=== PATIENT | female | born 1985 | race Caucasian/White ===

== ENCOUNTER → 2019-10-22 | Emergency (ER) | payer MEDICAID ==
[~2019-10-22] VITALS: Ht 165.1 cm; Wt 77.1 kg
[~2019-10-22] MED LIST: ACETAMINOPHEN 325 MG TAB PO ONE; DOCU-94 PO; LEVO-28 PO; PANT40TA2 PO; PROM25TA5 PO; SODIUM CHLORIDE 0.9% 1,000 ML IVB ONE; SUCR1TAB22 OR; diphenhdrAMINE HCL 50 MG/1 ML VL IV ONE
[2019-10-22 17:35] LABS: Basophils # (auto) 0 10 ^3/uL (0-0.2); Basophils % (auto) 0.2 % (0.0-2.0); Eosinophils # (auto) 0 10 ^3/uL (0-0.8); Eosinophils % (auto) 0.1 % (0.0-7.0); Hematocrit 41.1 % (36.0-46.0); Hemoglobin 13.5 g/dL (12.2-16.2); Lymphocytes # (auto) 1.6 10 ^3/uL (0.4-5.4); Lymphocytes % (auto) 9.8 % (10.0-50.0); Mean Corpuscular Hemoglobin 29.3 pg (28.0-32.0); Mean Corpuscular Hgb Conc. 32.8 g/dL (32.0-36.0); Mean Corpuscular Volume 89.3 fL (80.0-100.0); Monocytes # (auto) 0.2 10 ^3/uL (0-1.3); Monocytes % (auto) 1.5 % (0.0-12.0); Neutrophils # (auto) 14.4 10 ^3/uL (1.6-8.6); Neutrophils % (auto) 88.4 % (37.0-80.0); Platelet Count (auto) 315 10^3/uL (140-450); Red Blood Cells 4.61 10^6/uL (4.0-5.20); Red Cell Distribution Width 13.9 % (11.8-14.3); White Blood Cell 16.3 10^3/uL (4.4-10.8)
[2019-10-22 17:50] LABS: Alanine Aminotransferase 32 U/L (13-56); Anion Gap 14 (5-15); Aspartate Aminotransferase 31 U/L (15-37); BUN/Creatinine Ratio 6.6; Blood Alcohol < 3.0 mg/dL (0-5); Blood Urea Nitrogen 9 mg/dL (7-18); Calcium 7.7 mg/dL (8.5-10.1); Carbon Dioxide 19 mmol/L (21-32); Chloride 105 mmol/L (98-107); GFR African American 57 mL/min; GFR Non-African American 47 mL/min; Glucose 388 mg/dL (74-106); Potassium 3.6 mmol/L (3.5-5.1); Sodium 138 mmol/L (136-145)
[2019-10-22 17:53] LABS: Alkaline Phosphatase 90 U/L (45-117); Bilirubin, Total 0.4 mg/dL (0.2-1.0); Total Protein 7.1 g/dL (6.4-8.2)
[2019-10-22 17:54] LABS: Lactic Acid w/Reflex 2.7 mmol/L (0.4-2.0)
[2019-10-22 18:00] VITALS: BP 98/54
[2019-10-22 18:05] LABS: Urine Amorphous Crystal FEW /hpf (None Seen); Urine Bacteria FEW /hpf (None Seen); Urine Blood 2+ /uL (Negative); Urine Mucus FEW (None Seen); Urine Specific Gravity 1.008 (1.001-1.035); Urine WBC 16 /hpf (0 - 5)
[2019-10-22 18:14] LABS: Amphetamine Screen, Urine NEGATIVE (NEGATIVE); Barbiturate Scree,Urine NEGATIVE (NEGATIVE); Benzodiazephine Screen, Urine NEGATIVE (NEGATIVE); Cannabinoid Screen, Urine NEGATIVE (NEGATIVE); Cocaine Screen, Urine NEGATIVE (NEGATIVE); Opiate Scree,Urine NEGATIVE (NEGATIVE); Phencyclidine Screen, Urine NEGATIVE (NEGATIVE)
== END | disposition left against medical advice (07) ==
LOC: EDUNIT# 16:01 → EDBD 16:05 → ER 16:08
DX: R41.82 Altered mental status, unspecified (principal); N39.0 Urinary tract infection, site not specified; R74.0 Nonspecific elevation of levels of transaminase and lactic acid dehydrogenase [LDH]; F17.210 Nicotine dependence, cigarettes, uncomplicated; Z32.02 Encounter for pregnancy test, result negative; Z88.0 Allergy status to penicillin; Z88.6 Allergy status to analgesic agent
CPT/HCPCS: 36415; 71045; 80053; 80307; 80320; 81001; 81025; 83605; 85025; 87040; 96361; 96374; 99284; J1200; J7030

== ENCOUNTER → 2019-10-31 | Emergency (ER) | payer MEDICAID ==
[~2019-10-31] VITALS: Ht 165.1 cm; Wt 77.1 kg
[~2019-10-31] MED LIST changes: -ACETAMINOPHEN 325 MG TAB PO ONE; -DOCU-94 PO; -LEVO-28 PO; -PANT40TA2 PO; -PROM25TA5 PO; -SUCR1TAB22 OR; -diphenhdrAMINE HCL 50 MG/1 ML VL IV ONE
[2019-10-31 16:31] LABS: Basophils # (auto) 0 10 ^3/uL (0-0.2); Basophils % (auto) 0.4 % (0.0-2.0); Eosinophils # (auto) 0.1 10 ^3/uL (0-0.8); Eosinophils % (auto) 0.5 % (0.0-7.0); Hematocrit 36.5 % (36.0-46.0); Hemoglobin 12.2 g/dL (12.2-16.2); Lymphocytes # (auto) 0.9 10 ^3/uL (0.4-5.4); Lymphocytes % (auto) 7.3 % (10.0-50.0); Mean Corpuscular Hemoglobin 29.3 pg (28.0-32.0); Mean Corpuscular Hgb Conc. 33.4 g/dL (32.0-36.0); Mean Corpuscular Volume 87.6 fL (80.0-100.0); Monocytes # (auto) 0.6 10 ^3/uL (0-1.3); Monocytes % (auto) 4.8 % (0.0-12.0); Neutrophils # (auto) 10.8 10 ^3/uL (1.6-8.6); Platelet Count (auto) 273 10^3/uL (140-450); Red Blood Cells 4.17 10^6/uL (4.0-5.20); Red Cell Distribution Width 13.9 % (11.8-14.3); White Blood Cell 12.4 10^3/uL (4.4-10.8)
[2019-10-31 16:54] LABS: Albumin 3.3 g/dL (3.4-5.0); Calcium 8.2 mg/dL (8.5-10.1); Potassium 3.9 mmol/L (3.5-5.1)
[2019-10-31 16:58] LABS: BUN/Creatinine Ratio 13.4; Bilirubin, Total 0.3 mg/dL (0.2-1.0); Total Protein 6.8 g/dL (6.4-8.2)
[2019-10-31 18:00] VITALS: BP 117/89
[2019-10-31 18:48] LABS: Urine Bacteria FEW /hpf (None Seen); Urine Blood Negative /uL (Negative); Urine Hyaline Cast FEW /lpf (0 - 2); Urine Mucus FEW (None Seen); Urine Specific Gravity 1.014 (1.001-1.035); Urine WBC 9 /hpf (0 - 5)
[2019-10-31 19:08] LABS: Amphetamine Screen, Urine NEGATIVE (NEGATIVE); Barbiturate Scree,Urine NEGATIVE (NEGATIVE); Benzodiazephine Screen, Urine NEGATIVE (NEGATIVE); Cannabinoid Screen, Urine NEGATIVE (NEGATIVE); Cocaine Screen, Urine NEGATIVE (NEGATIVE); Opiate Scree,Urine NEGATIVE (NEGATIVE); Phencyclidine Screen, Urine NEGATIVE (NEGATIVE)
== END | disposition home or self-care (01) ==
LOC: ER 15:36 → EDBD 15:36 → EDUNIT# 15:36
DX: T50.901A Poisoning by unspecified drugs, medicaments and biological substances, accidental (unintentional), initial encounter (principal); L03.113 Cellulitis of right upper limb; F17.210 Nicotine dependence, cigarettes, uncomplicated; Z88.5 Allergy status to narcotic agent; Z88.0 Allergy status to penicillin; Y92.89 Other specified places as the place of occurrence of the external cause
CPT/HCPCS: 36415; 80053; 80307; 81001; 85025; 99283; J7030

== ENCOUNTER 2020-01-10 19:41 | Emergency (ER) | payer MEDICAID ==
[~2020-01-10] VITALS: Ht 165.1 cm; Wt 81.6 kg
[2020-01-10 20:52] VITALS: BP 156/90
== END 2020-01-10 21:20 | disposition left against medical advice (07) ==
LOC: ER 19:41
DX: R10.84 Generalized abdominal pain (principal); R11.2 Nausea with vomiting, unspecified; Z53.21 Procedure and treatment not carried out due to patient leaving prior to being seen by health care provider

== ENCOUNTER 2020-01-11 04:47 | Inpatient (IN) | payer MEDICAID ==
[~2020-01-11] VITALS: Ht 165.1 cm; Wt 87.0 kg
[2020-01-11 06:49] LABS: Basophils # (auto) 0.1 10 ^3/uL (0-0.2); Basophils % (auto) 0.3 % (0.0-2.0); Eosinophils # (auto) 0 10 ^3/uL (0-0.8); Eosinophils % (auto) 0.2 % (0.0-7.0); Hematocrit 40.9 % (36.0-46.0); Hemoglobin 13.5 g/dL (12.2-16.2); Lymphocytes # (auto) 0.8 10 ^3/uL (0.4-5.4); Lymphocytes % (auto) 4.4 % (10.0-50.0); Mean Corpuscular Hemoglobin 28.1 pg (28.0-32.0); Mean Corpuscular Hgb Conc. 33.1 g/dL (32.0-36.0); Monocytes # (auto) 0.7 10 ^3/uL (0-1.3); Monocytes % (auto) 4.1 % (0.0-12.0); Neutrophils # (auto) 16.3 10 ^3/uL (1.6-8.6); Platelet Count (auto) 281 10^3/uL (140-450); Red Blood Cells 4.81 10^6/uL (4.0-5.20); Red Cell Distribution Width 13.5 % (11.8-14.3); White Blood Cell 17.9 10^3/uL (4.4-10.8)
[2020-01-11] MEDS ORDERED: PANTOPRAZOLE 40 MG/10 ML VIAL INJ IV ONE (07:00)
[2020-01-11 07:09] LABS: Albumin 3.6 g/dL (3.4-5.0); Calcium 8.9 mg/dL (8.5-10.1); Magnesium 2.2 mg/dL (1.6-2.6); Potassium 3.9 mmol/L (3.5-5.1)
[2020-01-11 07:12] LABS: Bilirubin, Total 0.6 mg/dL (0.2-1.0); Total Protein 7.5 g/dL (6.4-8.2)
[2020-01-11 07:13] LABS: INR 0.96 (0.9-1.15); Partial Thromboplastin Time 25.8 sec (23.64-32.05)
[2020-01-11] MEDS: SODIUM CHLORIDE 0.9% 1,000 ML IV SCH ×2 (07:31→18:35)
[2020-01-11] MEDS ORDERED: DOCUSATE SOD 100 MG CAP PO PRN (07:45)
[2020-01-11] MEDS ORDERED: METOCLOPRAMIDE HCL 5MG/ml INJ 2ml VIAL IV PRN (07:45)
[2020-01-11] MEDS ORDERED: LORazepam 0.5 MG TAB PO PRN (07:45)
[2020-01-11 07:51] LABS: Urine Bacteria MANY /hpf (None Seen); Urine Blood TRACE /uL (Negative); Urine Mucus FEW (None Seen); Urine Specific Gravity 1.015 (1.001-1.035); Urine WBC 137 /hpf (0 - 5)
[2020-01-11] MEDS ORDERED: ONDANSETRON HCL 4 MG/2 ML VIAL IV ONE (08:00)
[2020-01-11] MEDS ORDERED: MORPHINE SULFATE 4 MG/ML SYR/VIAL IV ONE (08:00)
[2020-01-11] MEDS ORDERED: cefTRIAXone 1GM/50ML D5W 50 ML IV ONE (08:45)
[2020-01-11] MEDS ORDERED: metroNIDAZOLE 500MG/100ML 100 ML IV ONE (08:45)
[2020-01-11] MEDS: ACETAMINOPHEN 325 MG TAB PO PRN ×2 (08:48→16:15)
[2020-01-11] MEDS ORDERED: PANTOPRAZOLE 40 MG/10 ML VIAL INJ IV SCH (10:00)
[2020-01-11] MEDS ORDERED: NALOXONE HCL 0.4 MG/ML VIAL ONE (13:07)
[2020-01-11] MEDS ORDERED: FLUMAZENIL 0.1 MG/ML INJ 10ML MDV IV ONE (13:07)
[2020-01-11] MEDS ORDERED: SODIUM CHLORIDE LOCK 10 ML ONE (13:07)
[2020-01-11] MEDS ORDERED: LIDOCAINE VISCOUS 2% 15ML UD ONE (13:07)
[2020-01-11] MEDS ORDERED: diphenhdrAMINE HCL 50 MG/1 ML VL ONE (13:08)
[2020-01-11] MEDS ORDERED: MORPHINE SULF INJ 2 MG/ML SYRINGE 1ML IV PRN (13:15)
[2020-01-11] MEDS: ONDANSETRON HCL 4 MG/2 ML VIAL IV PRN ×2 (13:16→21:13)
[2020-01-11] MEDS: MIDAZOLAM HCL 5 MG/ML-1ML VIAL ONE ×2 (14:05→14:09)
[2020-01-11] MEDS: fentaNYL CITRATE 100 MCG/2 ML VL ONE ×2 (14:05→14:09)
[2020-01-11] MEDS: HYDROmorphone HCL 2 MG/ML VL IV PRN ×3 (14:16→21:13)
[2020-01-11] MEDS: SUCRALFATE 1 GM/10 ML ORAL SUSP PO SCH ×2 (16:15→21:13)
[2020-01-11 17:32] VITALS: BP 146/76
[2020-01-11] MEDS: PANTOPRAZOLE 40 MG/10 ML VIAL INJ IV SCH (21:13)
[2020-01-11] MEDS: metroNIDAZOLE 500MG/100ML 100 ML IV SCH (21:14)
[2020-01-11 22:00] VITALS: BP 119/59
[2020-01-12] MEDS: HYDROmorphone HCL 2 MG/ML VL IV PRN ×7 (00:35→20:42)
[2020-01-12] MEDS: ONDANSETRON HCL 4 MG/2 ML VIAL IV PRN (03:38)
[2020-01-12] MEDS: SODIUM CHLORIDE 0.9% 1,000 ML IV SCH ×2 (05:07→12:57)
[2020-01-12 05:30] VITALS: BP 131/67
[2020-01-12] MEDS: SUCRALFATE 1 GM/10 ML ORAL SUSP PO SCH ×4 (05:58→21:23)
[2020-01-12] MEDS: metroNIDAZOLE 500MG/100ML 100 ML IV SCH ×3 (05:58→21:22)
[2020-01-12 06:00] LABS: Basophils # (auto) 0 10 ^3/uL (0-0.2); Basophils % (auto) 0.3 % (0.0-2.0); Eosinophils # (auto) 0 10 ^3/uL (0-0.8); Eosinophils % (auto) 0.3 % (0.0-7.0); Hematocrit 33.4 % (36.0-46.0); Hemoglobin 11.3 g/dL (12.2-16.2); Lymphocytes # (auto) 1.2 10 ^3/uL (0.4-5.4); Lymphocytes % (auto) 12.6 % (10.0-50.0); Mean Corpuscular Hemoglobin 28.8 pg (28.0-32.0); Mean Corpuscular Hgb Conc. 33.9 g/dL (32.0-36.0); Mean Corpuscular Volume 85.1 fL (80.0-100.0); Monocytes # (auto) 0.8 10 ^3/uL (0-1.3); Monocytes % (auto) 8.4 % (0.0-12.0); Neutrophils # (auto) 7.4 10 ^3/uL (1.6-8.6); Neutrophils % (auto) 78.4 % (37.0-80.0); Platelet Count (auto) 197 10^3/uL (140-450); Red Blood Cells 3.93 10^6/uL (4.0-5.20); Red Cell Distribution Width 13.2 % (11.8-14.3); White Blood Cell 9.5 10^3/uL (4.4-10.8)
[2020-01-12 06:21] LABS: BUN/Creatinine Ratio 9.3; Calcium 7.8 mg/dL (8.5-10.1); Potassium 3.3 mmol/L (3.5-5.1)
[2020-01-12 08:00] VITALS: BP 114/67
[2020-01-12 09:00] VITALS: BP 109/67
[2020-01-12] MEDS: cefTRIAXone 1GM/50ML D5W 50 ML IV SCH (10:04)
[2020-01-12] MEDS: PANTOPRAZOLE 40 MG/10 ML VIAL INJ IV SCH ×2 (10:04→21:23)
[2020-01-12] MEDS ORDERED: POTASSIUM EFFERVESENT TAB 25 MEQ PO ONE (10:15)
[2020-01-12 13:00] VITALS: BP 121/63
[2020-01-12 17:00] VITALS: BP 135/77
[2020-01-12 22:00] VITALS: BP 134/72
[2020-01-13] MEDS: HYDROmorphone HCL 2 MG/ML VL IV PRN ×6 (00:10→19:49)
[2020-01-13] MEDS: SODIUM CHLORIDE 0.9% 1,000 ML IV SCH ×3 (02:54→17:46)
[2020-01-13 05:50] VITALS: BP 132/70
[2020-01-13] MEDS: SUCRALFATE 1 GM/10 ML ORAL SUSP PO SCH ×4 (06:00→22:28)
[2020-01-13] MEDS: metroNIDAZOLE 500MG/100ML 100 ML IV SCH ×3 (06:00→22:27)
[2020-01-13 06:05] LABS: Basophils # (auto) 0 10 ^3/uL (0-0.2); Basophils % (auto) 0.7 % (0.0-2.0); Eosinophils # (auto) 0 10 ^3/uL (0-0.8); Eosinophils % (auto) 0.5 % (0.0-7.0); Hematocrit 34.3 % (36.0-46.0); Hemoglobin 11.6 g/dL (12.2-16.2); Lymphocytes % (auto) 19.7 % (10.0-50.0); Mean Corpuscular Hemoglobin 28.6 pg (28.0-32.0); Mean Corpuscular Hgb Conc. 33.7 g/dL (32.0-36.0); Monocytes # (auto) 0.5 10 ^3/uL (0-1.3); Monocytes % (auto) 9.8 % (0.0-12.0); Neutrophils # (auto) 3.5 10 ^3/uL (1.6-8.6); Neutrophils % (auto) 69.3 % (37.0-80.0); Platelet Count (auto) 184 10^3/uL (140-450); Red Blood Cells 4.04 10^6/uL (4.0-5.20); Red Cell Distribution Width 13.2 % (11.8-14.3)
[2020-01-13 07:09] LABS: BUN/Creatinine Ratio 8.3; Calcium 7.9 mg/dL (8.5-10.1); Magnesium 2.2 mg/dL (1.6-2.6)
[2020-01-13] MEDS: cefTRIAXone 1GM/50ML D5W 50 ML IV SCH (08:54)
[2020-01-13] MEDS: PANTOPRAZOLE 40 MG/10 ML VIAL INJ IV SCH ×2 (08:55→22:28)
[2020-01-13 09:00] VITALS: BP 135/82
[2020-01-13] MEDS ORDERED: POTASSIUM EFFERVESENT TAB 25 MEQ PO ONE (12:00)
[2020-01-13 13:00] VITALS: BP 130/74
[2020-01-13 17:00] VITALS: BP 124/82
[2020-01-13 17:58] LABS: Calcium 7.7 mg/dL (8.5-10.1); Potassium 3.6 mmol/L (3.5-5.1)
[2020-01-13 22:00] VITALS: BP 124/73
[2020-01-14] MEDS: HYDROmorphone HCL 2 MG/ML VL IV PRN ×4 (02:58→13:20)
[2020-01-14 05:00] VITALS: BP 125/67
[2020-01-14] MEDS: SODIUM CHLORIDE 0.9% 1,000 ML IV SCH ×3 (05:26→15:31)
[2020-01-14 05:51] LABS: Basophils # (auto) 0 10 ^3/uL (0-0.2); Basophils % (auto) 0.9 % (0.0-2.0); Eosinophils # (auto) 0.1 10 ^3/uL (0-0.8); Eosinophils % (auto) 2.4 % (0.0-7.0); Hemoglobin 10.8 g/dL (12.2-16.2); Lymphocytes # (auto) 1.6 10 ^3/uL (0.4-5.4); Mean Corpuscular Hemoglobin 28.5 pg (28.0-32.0); Mean Corpuscular Hgb Conc. 33.7 g/dL (32.0-36.0); Mean Corpuscular Volume 84.7 fL (80.0-100.0); Monocytes # (auto) 0.6 10 ^3/uL (0-1.3); Monocytes % (auto) 13.5 % (0.0-12.0); Neutrophils # (auto) 2.4 10 ^3/uL (1.6-8.6); Neutrophils % (auto) 49.2 % (37.0-80.0); Nucleated Red Blood Cells % 0.1 %; Platelet Count (auto) 181 10^3/uL (140-450); Red Blood Cells 3.78 10^6/uL (4.0-5.20); Red Cell Distribution Width 13.3 % (11.8-14.3); White Blood Cell 4.8 10^3/uL (4.4-10.8)
[2020-01-14 06:09] LABS: Potassium 3.5 mmol/L (3.5-5.1)
[2020-01-14 06:11] LABS: BUN/Creatinine Ratio 7.7; Calcium 7.7 mg/dL (8.5-10.1)
[2020-01-14] MEDS: metroNIDAZOLE 500MG/100ML 100 ML IV SCH ×2 (06:30→14:10)
[2020-01-14] MEDS: SUCRALFATE 1 GM/10 ML ORAL SUSP PO SCH ×3 (06:30→17:13)
[2020-01-14] MEDS: cefTRIAXone 1GM/50ML D5W 50 ML IV SCH (08:11)
[2020-01-14 09:00] VITALS: BP 132/85
[2020-01-14] MEDS: PANTOPRAZOLE 40 MG/10 ML VIAL INJ IV SCH (09:59)
[2020-01-14] MEDS ORDERED: PROM25TA5 PO (13:54)
[2020-01-14] MEDS ORDERED: PANT40TA2 PO (13:54)
[2020-01-14] MEDS ORDERED: LEVO-28 PO (13:54)
[2020-01-14] MEDS ORDERED: SUCR1TAB38 OR (13:54)
[2020-01-14 14:00] VITALS: BP 140/94
[2020-01-14 14:25] VITALS: BP 132/85
[2020-01-14] MEDS ORDERED: DOCU-94 PO (16:28)
[2020-01-14 17:00] VITALS: BP 132/78
== END 2020-01-14 17:32 | disposition home or self-care (01) | DRG 241 ==
LOC: ER 04:47 → EDBD 04:47 → OVERFLOW 04:48 → WEST WING 15:39
PROVIDERS: ADMIT Hospitalist; ATTEND Internal Medicine
PROC: 0DB68ZX Excision of Stomach, Via Natural or Artificial Opening Endoscopic, Diagnostic (ICD-10-PCS; principal; 2020-01-11 13:00)
DX: K25.9 Gastric ulcer, unspecified as acute or chronic, without hemorrhage or perforation (principal); E86.0 Dehydration; N39.0 Urinary tract infection, site not specified; B96.20 Unspecified Escherichia coli [E. coli] as the cause of diseases classified elsewhere; E87.6 Hypokalemia; F17.210 Nicotine dependence, cigarettes, uncomplicated; Z88.0 Allergy status to penicillin; Z88.5 Allergy status to narcotic agent
CPT/HCPCS: 36415; 43239; 74176; 80048; 80053; 81001; 82150; 83690; 83735; 84443; 84702; 85025; 85610; 85730; 86677; 87086; 87088; 87186; 96365; 96367; 96375; C9113; G0378; J0696; J2250; J2405; J3490

== ENCOUNTER 2022-07-18 04:47 | Emergency (ER) | payer MEDICAID ==
[~2022-07-18] VITALS: Ht 162.6 cm; Wt 77.1 kg
[~2022-07-18 04:47] MED LIST changes: +DOCU-94 PO; +LEVO-28 PO; +PANT40TA2 PO; +PROM25TA5 PO; -SODIUM CHLORIDE 0.9% 1,000 ML IVB ONE; +SUCR1TAB22 OR
[2022-07-18 05:09] VITALS: BP 127/70
[2022-07-18 07:44] LABS: Albumin 3.8 g/dL (3.4-5.0); BUN/Creatinine Ratio 12.5; Magnesium 2.6 mg/dL (1.6-2.6); Potassium 3.7 mmol/L (3.5-5.1)
[2022-07-18 07:47] LABS: Total Protein 7.1 g/dL (6.4-8.2)
[2022-07-18 07:50] LABS: Basophils # (auto) 0 10 ^3/uL (0-0.2); Basophils % (auto) 0.4 % (0.0-2.0); Eosinophils # (auto) 0 10 ^3/uL (0-0.8); Eosinophils % (auto) 0.3 % (0.0-7.0); Hematocrit 40.2 % (36.0-46.0); Hemoglobin 13.7 g/dL (12.2-16.2); Lymphocytes # (auto) 1.7 10 ^3/uL (0.4-5.4); Lymphocytes % (auto) 14.6 % (10.0-50.0); Mean Corpuscular Hemoglobin 27.8 pg (28.0-32.0); Mean Corpuscular Hgb Conc. 34.1 g/dL (32.0-36.0); Mean Corpuscular Volume 81.4 fL (80.0-100.0); Monocytes # (auto) 0.4 10 ^3/uL (0-1.3); Monocytes % (auto) 3.7 % (0.0-12.0); Neutrophils # (auto) 9.2 10 ^3/uL (1.6-8.6); Red Blood Cells 4.94 10^6/uL (4.0-5.20); Red Cell Distribution Width 13.8 % (11.8-14.3); White Blood Cell 11.4 10^3/uL (4.4-10.8)
[2022-07-18] MEDS ORDERED: SODIUM CHLORIDE 0.9% 500 ML IVB ONE (08:45)
[2022-07-18] MEDS ORDERED: LIDOCAINE VISCOUS 2% 15ML UD PO ONE (08:45)
[2022-07-18] MEDS ORDERED: PANTOPRAZOLE 40 MG TAB PO ONE (08:45)
[2022-07-18] MEDS ORDERED: ALUM & MAG HYDROX-SIMETH LIQ(MAALOX) 30 ML PO ONE (08:45)
[2022-07-18] MEDS ORDERED: PROCHLORPERAZINE EDISYLATE 5 MG/ML 2ML VIAL IV ONE (08:45)
[2022-07-18] MEDS ORDERED: SODIUM CHLORIDE 0.9% 1,000 ML IV ONE (08:45)
[2022-07-18] MEDS ORDERED: DONNATAL 5ml ORAL Elix (BELLADONNA ALK-PHENOBARB) PO ONE (08:45)
[2022-07-18] MEDS ORDERED: IOHEXOL 300 MG/ML 100ML BOTTLE IJ ONE (10:50)
[2022-07-18] MEDS ORDERED: PROC10TA2 PO (16:01)
[2022-07-18] MEDS ORDERED: PANT40TA2 PO (16:01)
== END 2022-07-18 16:18 | disposition left against medical advice (07) ==
LOC: EDBD 04:47 → ER 04:47
DX: K44.9 Diaphragmatic hernia without obstruction or gangrene (principal); K42.9 Umbilical hernia without obstruction or gangrene; F12.188 Cannabis abuse with other cannabis-induced disorder; F17.210 Nicotine dependence, cigarettes, uncomplicated; F12.10 Cannabis abuse, uncomplicated; Z32.02 Encounter for pregnancy test, result negative; Z88.0 Allergy status to penicillin; Z88.6 Allergy status to analgesic agent
CPT/HCPCS: 36415; 71046; 74177; 80053; 82150; 83690; 83735; 84702; 85025; 93005; 96374; 99285; J0780; Q9967

== ENCOUNTER 2022-09-22 13:07 | Emergency (ER) | payer MEDICAID ==
[~2022-09-22] VITALS: Ht 165.1 cm; Wt 90.9 kg
[~2022-09-22 13:07] MED LIST changes: +PROC10TA2 PO
[2022-09-22] MEDS ORDERED: LEVO-28 PO (13:29)
[2022-09-22] MEDS ORDERED: SODIUM CHLORIDE 0.9% 1,000 ML IV ONE (13:30)
[2022-09-22] MEDS ORDERED: levoFLOXacin 500MG 100 ML IV ONE (13:30)
[2022-09-22 14:12] LABS: Basophils # (auto) 0 10 ^3/uL (0-0.2); Basophils % (auto) 0.4 % (0.0-2.0); Eosinophils # (auto) 0.1 10 ^3/uL (0-0.8); Eosinophils % (auto) 1.4 % (0.0-7.0); Hematocrit 38.8 % (36.0-46.0); Hemoglobin 13.3 g/dL (12.2-16.2); Lymphocytes # (auto) 2.1 10 ^3/uL (0.4-5.4); Lymphocytes % (auto) 39.9 % (10.0-50.0); Mean Corpuscular Hemoglobin 27.9 pg (28.0-32.0); Mean Corpuscular Hgb Conc. 34.2 g/dL (32.0-36.0); Mean Corpuscular Volume 81.6 fL (80.0-100.0); Monocytes # (auto) 0.3 10 ^3/uL (0-1.3); Monocytes % (auto) 5.6 % (0.0-12.0); Neutrophils # (auto) 2.7 10 ^3/uL (1.6-8.6); Neutrophils % (auto) 52.7 % (37.0-80.0); Nucleated Red Blood Cells % 0.2 %; Red Blood Cells 4.76 10^6/uL (4.0-5.20); Red Cell Distribution Width 13.8 % (11.8-14.3); White Blood Cell 5.2 10^3/uL (4.4-10.8)
[2022-09-22 14:37] LABS: Albumin 3.5 g/dL (3.4-5.0); BUN/Creatinine Ratio 12.5; Bilirubin, Total 0.4 mg/dL (0.2-1.0); Potassium 3.4 mmol/L (3.5-5.1); Total Protein 6.3 g/dL (6.4-8.2)
[2022-09-22] MEDS ORDERED: POTASSIUM EFFERVESENT TAB 25 MEQ PO ONE (15:00)
== END 2022-09-22 20:37 | disposition left against medical advice (07) ==
LOC: EDBD 13:07 → ER 13:07
DX: J06.9 Acute upper respiratory infection, unspecified (principal); K02.9 Dental caries, unspecified; F17.210 Nicotine dependence, cigarettes, uncomplicated; Z79.2 Long term (current) use of antibiotics; Z79.899 Other long term (current) drug therapy; Z88.0 Allergy status to penicillin; Z88.5 Allergy status to narcotic agent; Z88.8 Allergy status to other drugs, medicaments and biological substances
CPT/HCPCS: 36415; 71045; 80053; 84484; 85025; 85379; 93005; 96365; 99285; J1956; J7030

== ENCOUNTER 2022-11-20 11:06 | Emergency (ER) | payer MEDICAID ==
[~2022-11-20] VITALS: Ht 170.2 cm; Wt 77.2 kg
[2022-11-20] MEDS ORDERED: SODIUM CHLORIDE 0.9% 1,000 ML IVB ONE (11:15)
[2022-11-20 12:06] LABS: Basophils # (auto) 0 10 ^3/uL (0-0.2); Basophils % (auto) 0.2 % (0.0-2.0); Eosinophils # (auto) 0 10 ^3/uL (0-0.8); Eosinophils % (auto) 0.1 % (0.0-7.0); Hematocrit 40.7 % (36.0-46.0); Hemoglobin 13.5 g/dL (12.2-16.2); Lymphocytes # (auto) 0.5 10 ^3/uL (0.4-5.4); Lymphocytes % (auto) 2.4 % (10.0-50.0); Mean Corpuscular Hemoglobin 27.9 pg (28.0-32.0); Mean Corpuscular Hgb Conc. 33.3 g/dL (32.0-36.0); Mean Corpuscular Volume 83.7 fL (80.0-100.0); Monocytes # (auto) 0.4 10 ^3/uL (0-1.3); Monocytes % (auto) 2.1 % (0.0-12.0); Neutrophils # (auto) 17.7 10 ^3/uL (1.6-8.6); Neutrophils % (auto) 95.2 % (37.0-80.0); Red Blood Cells 4.86 10^6/uL (4.0-5.20); Red Cell Distribution Width 13.7 % (11.8-14.3); White Blood Cell 18.6 10^3/uL (4.4-10.8)
[2022-11-20 12:08] LABS: Albumin 3.3 g/dL (3.4-5.0); Anion Gap 9 (5-15); Blood Urea Nitrogen 11 mg/dL (7-18); Calcium 8.4 mg/dL (8.5-10.1); Carbon Dioxide 20 mmol/L (21-32); Chloride 106 mmol/L (98-107); Glucose 150 mg/dL (74-106); Potassium 3.8 mmol/L (3.5-5.1); Sodium 135 mmol/L (136-145)
[2022-11-20 12:14] LABS: Alanine Aminotransferase 60 U/L (13-56); Alkaline Phosphatase 101 U/L (45-117); Aspartate Aminotransferase 91 U/L (15-37); BUN/Creatinine Ratio 9.3 (10.0-20.0); Bilirubin, Total 0.8 mg/dL (0.2-1.0); Blood Alcohol < 3.0 mg/dL (0-5); GFR African American 67 mL/min; GFR Non-African American 55 mL/min; Total Protein 7.2 g/dL (6.4-8.2)
[2022-11-20 14:02] VITALS: BP 109/69
== END 2022-11-20 14:04 | disposition home or self-care (01) ==
LOC: EDBD 11:06 → ER 11:06
DX: T40.411A Poisoning by fentanyl or fentanyl analogs, accidental (unintentional), initial encounter (principal); F17.210 Nicotine dependence, cigarettes, uncomplicated; F12.10 Cannabis abuse, uncomplicated; F19.10 Other psychoactive substance abuse, uncomplicated; Z88.8 Allergy status to other drugs, medicaments and biological substances; Z88.0 Allergy status to penicillin; Z88.5 Allergy status to narcotic agent; Y92.89 Other specified places as the place of occurrence of the external cause
CPT/HCPCS: 36415; 70450; 80053; 80320; 82962; 85025; 93005; 96360; 99284; J7030; J7040

== ENCOUNTER 2024-10-21 17:50 | Emergency (ER) | payer MEDICAID ==
[~2024-10-21] VITALS: Ht 167.6 cm; Wt 70.0 kg
[2024-10-21 17:50] VITALS: PULSE 0
[~2024-10-21 17:50] MED LIST changes: -LEVO-28 PO; +LEVO500T91 PO; -PROC10TA2 PO; +PROC10TA6 PO; +PROM25TA10 PO; -PROM25TA5 PO; -SUCR1TAB22 OR; +SUCR1TAB31 OR
[2024-10-21 17:52] VITALS: BP 0/0; PULSE 0; RESP 0; TEMP 97.5; O2SAT 0
--- NOTE | 2024-10-21 18:05 | ED.PDOC ---
CPR-HPI HPI Comments 38Y F presents to ED via EMS with chief complaint CPR. EMS received call from family at 17:14 and arrived on scene at approximately 17:22. Pt was given Narcan 8mg by mother and 6 epis by EMS. Pt was in Vfib and was defibrillated. Pt was also given 500mL of fluids. EMS arrived to ED at 1750 with CPR in progress. Pt has h/o overdose one year ago. Chief Complaint: CPR Time Seen by MD: 17:50 Primary Care Provider: TANNER Reviewed Notes: Nurses Notes, Tattoo Technician Notes, Medications, Allergies Allergies: Coded Allergies: Atorvastatin (Verified Allergy, Severe, 11/20/22) Codeine (Unverified Allergy, Unknown, 11/20/22) Ibuprofen (Verified Allergy, Unknown, 11/20/22) Penicillins (Unverified Allergy, Unknown, 11/20/22) Home Meds Active Scripts Levofloxacin Hemihydrate (LEVOFLOXACIN) 500 Mg Tab, 500 MG PO DAILY for 10 Days, #10 MG Prov:AVE MCPHERSON MD 09/22/22 Pantoprazole Sodium Sesquihydr (Protonix) 40 Mg Tab, 40 MG PO DAILY for 10 Days, #10 TAB Prov:MARCIN STOCK MD 07/18/22 Prochlorperazine Maleate (Compazine) 10 Mg Tb, 1 TAB PO Q6HR for 5 Days, #20 TAB 3 Refills Prov:MARCIN STOCK MD 07/18/22 Docusate Sodium (Colace) 100 Mg Cap, 1 CAP PO BID, #60 CAP 0 Refills Prov:BENEDICTO SMITH MD 01/14/20 Levofloxacin Hemihydrate (LEVOFLOXACIN) 500 Mg Tab, 1 TAB PO DAILY, #2 TAB Prov:BENEDICTO SMITH MD 01/14/20 Promethazine Hcl (Promethazine Hcl) 25 Mg Tab, 1 TAB PO Q6HPRN PRN, #20 TAB 0 Refills Prov:BENEDICTO SMITH MD 01/14/20 Pantoprazole Sodium Sesquihydr (Protonix) 40 Mg Tab, 40 MG PO BID, #60 TAB Prov:BENEDICTO SMITH MD 01/14/20 Sucralfate (CARAFATE) 1 Gm Tab, 1 GM OR QIDACHS for 30 Days, #120 TAB Prov:BENEDICTO SMITH MD 01/14/20 Information Source: Emergency Med Personnel Mode of Arrival: EMS Brought in by: EMS Timing: Minutes Duration: Down time prior EMS: (7mins), Total time prior hopital: (35mins) Onset: Unknown Available Hx: Drug Overdose Inital rhythm: V-fib Treatment: CPR, Defibrillation, Epinephrine, Other Associated signs and symptoms: Unknown Past Medical History PAST MEDICAL HISTORY: Cancer, Seizures Surgical History: Denies all surgeries ORDER PACKER OR PACKAGER History: No Pertinent ORDER PACKER OR PACKAGER History Family History Family History: No family hx of Cancer, No family hx of DM, No family hx of Heart danial Social History Smoker: Cigarettes Alcohol: Rarely Drugs: Marijuana, Other Lives In: Home Unable to Obtain due to: Medical Urgency Physical Exam Exam Comments Ashen, pupils fixed and dilated, CPR in progress upon arrival and continued in the emergency department. General Appearance: Obese HEENT: Pale [place] (L), Pale [place] (R), Other (Pupils fixed and dilated) Neck: Normal Inspection, Supple Respiratory: Other (No spontaneous respirations, lungs clear , good breath sounds bilaterally with bagging after intubation) Cardiovascular: Other (Pulseless, asystole on the monitor) Breast Exam: Normal Gastrointestinal: Other (Soft, obese) Genitalia: Normal Pelvic: Deferred Rectal: Rectal Exam not done Extremities: Other (cool, pale, pulseless) Neurologic: Other (unresponsive, no blink reflex, no gag reflex, no spont respirations) Cerebellar Function: NOT DONE Reflexes: NOT DONE Skin: Pallor, Other (cool, dry) Lymphatic: NOT DONE Was a procedure done? Was a procedure done?: Yes Sedation Sedation?: No Informed consent obtained: No Intubation Indication: Altered Mental Status, Airway Protection Prep: Preoxygenation Pretreated with: Nothing Medicated with: Nothing Intubation Approach: Orotracheal Intubation size: cm (8) Informed consent obtained: No Risks/benefits/alt described: No Notes CPR in progress. Patient pulseless with no spontaneous respirations. Patient had a LMA airway established by EMS. Downtime of at least 45 minutes in the field. I intubated the patient upon arrival was in the emergency department with a 4-0 MAC blade and 8 0 cuffed ET tube, 23 at the lip. There was good color change on the capnometer and good breath sounds bilaterally after intubation. Differential Dx CPR Differential Diagnosis: Cardiopulmonary arrest, Cardiac Tamponade, Cardiogenic shock, Dysrhythmia, Heart Block, Myocardial Infarction, Pulmonary Embolus, Resp iratory Failure, Ruptured Aortic Aneurysm, Other X-Ray, Labs, Meds, VS Vital Signs Date Time Temp Pulse Resp B/P (MAP) Pulse Ox O2 Delivery O2 Flow Rate FiO2 10/21/24 17:52 97.5 0 0 0/0 (0) 0 97.5 Time of 1ST Reevaluation: 18:04 (Patient declared ) Reevaluation 1ST: Patient Education/Counseling: Pt Unresponsive Family Education/Counseling: No Family Present Departure 1 Departure Time of Disposition: 18:05 Impression: Primary Impression: Accidental fentanyl overdose Additional Impression: Cardiopulmonary arrest Disposition: 20 Condition: Other () Discharged With: Other Critical Care Note Critical Care Time?: Yes (90 min-critical care time only) Critical care comment: Total critical care time: Approximately 36 minutes Due to a high probability of clinically significant, life threatening deterioration, the patient required my highest level of preparedness to intervene emergently and I personally spent this critical care time directly and personally managing the patient. This critical care time included obtaining a history; examining the patient; pulse oximetry; ordering and review of studies; arranging urgent treatment with development of a management plan; evaluation of patient's response to treatment; frequent reassessment; and, discussions with other providers. This critical care time was performed to assess and manage the high probability of imminent, life-threatening deterioration that could result in multi-organ failure. It was exclusive of separately billable procedures and treating other patients. Heart Score Heart Score: Heart Score Response (Comments) Value History N/A 0 EKG N/A 0 Age N/A 0 Risk Factors N/A 0 Troponin N/A 0 Total 0 Stability Stability form required: No I personally scribed for DANY GURROLA MD ([email or web address]) on 10/21/24 at 18:05. Electronically submitted by Libby Rasmussen ([email or web address]). DANY GURROLA MD Oct 21, 2024 18:05
--- NOTE | 2024-10-21 18:53 | RESUS ---
CODE BLUE ASSESSSMENT History of Events History of Events: Patient found unresponsive by mother at approximately 1715. Unknown total downtime. Per EMS, upon their arrival S.O had initiated CPR awaiting EMS arrival. Patient remained pulseless at scene where MAY device was applied to patient. EMS treatment: EPI 6 total Narcan 4 total Shocked with 200j for VFib accucheck 260 Initial Information Date: Oct 21, 2024 Time: 17:50 Location of Arrest: In Field Arrest Witnessed: No CPR started by whom: EMS Pre-Hospital Care: ACLS Type of arrest: Cardiac, Respiratory Spontaneous Respirations: No Pulse Present: No Monitoring: Pulse Oximetry, Telemetry Crash Cart Opened and Supplies: Yes Airway Ventilation Breathing at Onset: Assisted O2 Sat by Pulse Oximetry: 88 Oxygen Delivery Method: Ambu-Bag Artificial Ventilation: Bag/Mask, Bag/Endo tube Intubation Time: 17:54 Intubation Size: 8.0 cuffed Intubated by: Dr Lopze Intubation Attempts: 1 Intubated orally: Yes Tube secured at: 23 Cricoid pressure done: No CO2 indicator used: Yes Confirmation: Auscultation, Exhaled CO2 Suctioning (Oral/Tracheal): Yes Circulation Circulation #1: Time: 17:52 Circulation Comment: asystole Circulation #2: Time: 17:54 Circulation Comment: asystole Circulation #3: Time: 17:56 Circulation Comment: asystole Circulation #4: Time: 17:58 Circulation Comment: asystole Circulation #5: Time: 18:00 Circulation Comment: asystole Circulation #6: Time: 18:02 Circulation Comment: asystole Circulation #7: Time: 18:04 Circulation Comment: asystole Procedure - IV Procedure - IV #1: IV start time: 17:59 IV Side: Right IV Location: Antecubital IV Catheter Type: Peripheral IV IV Placed: In Hospital IV Placed by Tejas XAVIER IV Gauge: 20 IV Line Care: Saline Flush Procedure - IV #2: IV Side: Left IV Location: Antecubital IV Catheter Type: Peripheral IV IV Placed: Pre-Hospital IV Placed by EMS IV Gauge: 18 IV Line Care: Saline Flush Procedure - Intraosseous Site of Intraosseous: Tibia kina-medial Intraosseous inserted by: EMSv prior to ER arrival Medications & Response Medications and Responses #1: Medication Time: 17:53 ADULT Medications Given ADULT: Epinephrine 1 mg Route of Administration: IV EKG Rhythm: Asystole Medications and Responses #2: Medication Time: 17:56 ADULT Medications Given ADULT: Epinephrine 1 mg Route of Administration: IV EKG Rhythm: Asystole Medications and Responses #3: Medication Time: 17:57 ADULT Medications Given ADULT: Sodium Bacarbinate 50 meq Route of Administration: IV Medications and Responses #4: Medication Time: 17:59 ADULT Medications Given ADULT: Epinephrine 1 mg Route of Administration: IV EKG Rhythm: Asystole Medications and Responses #5: Medication Time: 18:02 ADULT Medications Given ADULT: Epinephrine 1 mg Route of Administration: IV EKG Rhythm: Asystole Nurses Notes [place] Coma Scale Eye Opening: None (1) [place] Coma Scale Verbal: None (1) [place] Coma Scale Motor: None (1) Pupil Reaction: Non Reactive Bedside Blood Glucose: 253 EKG Rhythm: Asystole Time Code Ended Time Code Ended: 18:04 Post Arrest Status: Outcome of code: Unsuccessful Patient pronounced by: Dr Lopez Time patient pronounced: 18:04 Family notified: Yes Code Team Present: Dr Lopez RN Vadim RN Tejas surgical appliance fitter Lesly XAVIER Nohemy hooper RT Post Resuscitation Neurologica Pupil Size: 5 Nohemy Duarte Oct 21, 2024 18:53
== END 2024-10-21 18:04 ==
LOC: EDBD 17:50 → ER 17:50
DX: T40.411A Poisoning by fentanyl or fentanyl analogs, accidental (unintentional), initial encounter (principal); I46.9 Cardiac arrest, cause unspecified; F12.90 Cannabis use, unspecified, uncomplicated; F17.210 Nicotine dependence, cigarettes, uncomplicated; Z88.0 Allergy status to penicillin; Z88.5 Allergy status to narcotic agent; Z88.6 Allergy status to analgesic agent; Z79.899 Other long term (current) drug therapy; Y92.89 Other specified places as the place of occurrence of the external cause
CPT/HCPCS: 31500; 82947; 92950